=== PATIENT | female | born 1965 | race Caucasian/White ===

== ENCOUNTER 2020-11-16 22:14 | Emergency (ER) | payer BC, OTHER ==
--- NOTE | 2020-11-17 00:22 | EDM.PDOC ---
ED HPI GENERAL MEDICAL PROBLEM - General Chief Complaint: Skin Complaint Stated Complaint: poss bug bite to ankle Time Seen by Provider: 11/17/20 00:06 Source of Information: Reports: Patient History Limitations: Reports: No Limitations - History of Present Illness INITIAL COMMENTS - FREE TEXT/NARRATIVE: Mrs. Mae is a pleasant 55-year-old woman who now presents the ED with pain, swelling, and redness to the lateral aspect of her right ankle that developed on , 11/12/2020, after she started wearing new boots that day. She states that she has been applying petroleum jelly to an abraded area over the lateral malleolus. She states that she felt feverish, although did not check her temperature, on 11/14/2020. She is concerned that her symptoms are due to a spider or other bug bite. Here in the ED, the patient's initial BP is found to be mildly elevated at 144/88, otherwise, she is hemodynamically stable, afebrile, saturating 94% on room air. Prior to , the patient denies having a recent fever, chills, sore throat, ear pain, nasal or sinus congestion, cough, dyspnea, chest pain, palpitations, nausea, vomiting, constipation, diarrhea, abdominal pain, urinary symptoms, recent weight gain or weight loss, recent bloody bowel movements or black bowel movements, recent joint aches, headaches, or rashes. The patient does not have a PCP. She states that her tetanus vaccination is up-to-date. Right Feet Pain Score (Numeric/FACES): 4 - Related Data Allergies Allergy/AdvReac Type Severity Reaction Status Date / Time No Known Allergies Allergy Verified 11/16/20 22:37 Home Meds: Home Meds . [No Known Home Meds] 11/16/20 [History] Past Medical History - Infectious Disease History Infectious Disease History: Reports: Novel Coronavirus - Past Surgical History HEENT Surgical History: Reports: Tonsillectomy Female Surgical History: Reports: Tubal Ligation Social & Family History - Tobacco Use Tobacco Use Status *Q: Current Every Day Tobacco User Years of Tobacco use: 30 Packs/Tins Daily: 0.1 - Caffeine Use Caffeine Use: Reports: Coffee - Alcohol Use Alcohol Use History: No - Recreational Drug Use Recreational Drug Use: No - Living Situation & Occupation Living situation: Reports: , with Spouse, with Family (1 child) Occupation: Employed (Self-employed) ED ROS GENERAL - Review of Systems Review Of Systems: Comprehensive ROS is negative, except as noted in HPI. ED EXAM, SKIN/RASH Exam: See Below Exam Limited By: No Limitations General Appearance: Alert, WD/WN, No Apparent Distress Extremities: Other (The lateral aspect of the patient's right ankle is swollen, when compared to the left ankle, with erythema that extends anteriorly and posteriorly, but not significantly medial to the midline. The skin over the lateral malleolus is abraded. No drainage.) Course - Vital Signs Last Recorded V/S: Last Vital Signs Temp 37.9 C 11/16/20 22:32 Pulse 94 11/16/20 22:32 Resp 16 11/16/20 22:32 BP 144/88 H 11/16/20 22:32 Pulse Ox 94 L 11/16/20 22:32 - Re-Assessments/Exams Free Text/Narrative Re-Assessment/Exam: 11/17/20 00:15 As above, the patient appears to have abraded the lateral aspect of her right ankle when she started wearing some new boots this past . The break in the skin appears to have caused local cellulitis. I will prescribe a 10-day cou rse of cephalexin via [facility], that the patient can start now. Departure - Departure Time of Disposition: 00:16 Disposition: Home, Self-Care 01 Condition: Good Clinical Impression: Cellulitis of right ankle - Discharge Information *PRESCRIPTION DRUG MONITORING PROGRAM REVIEWED*: Not Applicable *COPY OF PRESCRIPTION DRUG MONITORING REPORT IN PATIENT VALERIE: Not Applicable Instructions: Cellulitis, Adult Referrals: William Velez MD [Primary Care Provider] - Forms: ED Department Discharge Additional Instructions: You were seen in the emergency room after developing pain, swelling, and redness to the outside of your right ankle after starting to wear new boots this past . Based on your history and physical examination, you appear to have developed cellulitis (a local skin infection) to the area, most likely caused by your skin being abraded by your new boots. A prescription for the antibiotic Keflex has been provided to you via [facility]. Take 1 tablet of Keflex every 6 hours, as prescribed. Finish the entire prescription unless told otherwise by a doctor. If any other problems, please do not hesitate to return to the ER. Sepsis Event Note (ED) - Evaluation Sepsis Screening Result: Possible Sepsis Risk
== END 2020-11-17 00:28 | disposition home or self-care (01) ==
LOC: JD.ED 22:14
DX: L03.116 Cellulitis of left lower limb (principal); Z86.16 Personal history of COVID-19; Z72.0 Tobacco use
CPT/HCPCS: 99283

== ENCOUNTER 2021-12-17 18:01 | Emergency (ER) | payer OTHER ==
[2021-12-17] MEDS ORDERED: Lidocaine 1% with EPINEPHrine 1:100,000 10 ML MDV INJECT ONE (18:33)
[2021-12-17] MEDS ORDERED: Diphtheria,Pertussis(Acell),Tetanus Vaccine 0.5 ML Syringe IM ONE (18:33)
[2021-12-17] MEDS ORDERED: Lidocaine 1% with EPINEPHrine 1:100,000 20 ML MDV ONE (18:42)
== END 2021-12-17 20:50 | disposition home or self-care (01) ==
LOC: JD.ED 18:01
DX: S01.112A Laceration without foreign body of left eyelid and periocular area, initial encounter (principal); Z86.16 Personal history of COVID-19; Z23 Encounter for immunization; W22.8XXA Striking against or struck by other objects, initial encounter; Y99.0 Civilian activity done for income or pay
CPT/HCPCS: 12013; 90471; 90715; 99282-25